=== PATIENT | female | born 1990 | race American Indian/Alaskan Native ===

== ENCOUNTER 2017-10-22 03:20 | Emergency (ER) | payer OTHER ==
[2017-10-22] MEDS ORDERED: Sodium Chloride 0.9% 1,000 ML ONE (03:39)
[2017-10-22] MEDS ORDERED: Sodium Chloride 0.9% 1,000 ML IV ONE (03:47)
[2017-10-22 03:49] VITALS: O2SAT 100
[2017-10-22 03:57] LABS: BASO % 0.4 % (0.0-2.0); EOS # 0.1 K/uL (0.0-0.7); EOS % 0.5 % (0.0-4.0); HEMATOCRIT 35.7 % (34.0-47.0); LYMPH # 1.1 K/uL (1.0-4.3); MEAN CELL VOLUME 95.6 fL (81.0-99.0); MEAN CORPUSCULAR HEMOGLOBIN 33.3 pg (27.0-31.0); MEAN CORPUSCULAR HGB CONC 34.9 g/dL (33.0-37.0); MEAN PLATELET VOLUME 9.9 fL (7.2-11.7); MONO # 0.9 K/uL (0.0-0.8); MONO % 8.5 % (0.0-10.0); NRBC % 0.1 % (0.0-2.0); RED CELL DISTRIBUTION WIDTH 12.8 % (11.5-14.5); WHITE BLOOD COUNT 10.4 K/uL (4.8-10.8)
[2017-10-22 04:02] LABS: RBC URINE 1 /hpf (0-3); URINE BACTERIA RARE (<OCC); URINE BILIRUBIN NEGATIVE (NEGATIVE); URINE BLOOD NEGATIVE (NEGATIVE); URINE COLOR Yellow (YELLOW); URINE GLUCOSE (UA) NORMAL (Normal); URINE KETONE NEGATIVE (NEGATIVE); URINE LEUKOCYTE ESTERASE TRACE Leu/uL (Negative); URINE PROTEIN NEGATIVE (NEGATIVE); URINE UROBILINOGEN NORMAL mg/dL (0.2-1.0); WBC URINE 3 /hpf (0-5)
[2017-10-22 04:06] LABS: ALKALINE PHOSPHATASE 74 U/L (38-126); ALT/SGPT 22 U/L (9-52); AST/SGOT 22 U/L (14-36); BILIRUBIN,TOTAL 0.4 mg/dL (0.2-1.3); BLOOD UREA NITROGEN 10 mg/dL (7-17); CALCIUM 8.9 mg/dl (8.6-10.4); CARBON DIOXIDE 25 mmol/L (22-30); CHLORIDE 101 mmol/L (98-107); GFR AFRICAN-AMERICAN > 60; GLUCOSE,RANDOM 99 mg/dL (65-105); POTASSIUM 3.3 mmol/L (3.6-5.2); SODIUM 132 mmol/L (132-148); TOTAL PROTEIN 7.5 g/dL (6.3-8.3)
--- NOTE | 2017-10-22 04:17 | C.PDOC ---
History Of Present Illness 27 year old female presents to the ER with a complaint of intermittent dizziness that has been worsening over the past week. Patient was seen by her OB yesterday who sent her to another ER for evaluation of dizziness, she had a an US done that was normal and was discharged home. Denies syncope, chest pain, palpitations, no recent prolonged travel, URI symptoms, abdominal pain, or vaginal bleeding. Time Seen by Provider: 10/22/17 03:42 Chief Complaint (Nursing): Dizziness/Lightheaded History Per: Patient History/Exam Limitations: no limitations Onset/Duration Of Symptoms: Days Current Symptoms Are (Timing): Still Present Associated Symptoms Preceding Syncopal Episode: Other (Dizziness) Seizure Or Post-ictal Symptoms: None Fall Associated With With Symptoms: No Recent travel outside of the [place]: No - Symptoms Of CVA Associated Symptoms: denies: Impaired Speech, Seizure Activity, New Vision Deficit(Left), New Vision Deficit(Right), Decreased Ability To Walk, New Confusion Past Medical History Reviewed: Historical Data, Nursing Documentation, Vital Signs Vital Signs: Last Vital Signs Temp 97.6 F 10/22/17 03:31 Pulse 103 H 10/22/17 03:31 Resp 16 10/22/17 03:31 BP 121/75 10/22/17 03:31 Pulse Ox 100 10/22/17 05:24 - Medical History PMH: No Chronic Diseases Family History: States: Unknown Family Hx - Social History Hx Alcohol Use: No Hx Substance Use: No - Immunization History Hx Tetanus Toxoid Vaccination: No Hx Influenza Vaccination: Yes Hx Pneumococcal Vaccination: No Review Of Systems Constitutional: Negative for: Fever, Chills Cardiovascular: Negative for: Chest Pain, Palpitations Respiratory: Negative for: Cough, Sputum, Wheezing Gastrointestinal: Negative for: Abdominal Pain Neurological: Positive for: Dizziness. Negative for: Other (Syncope) Physical Exam - Physical Exam Appears: Non-toxic, No Acute Distress Skin: Normal Color, Warm, Dry Head: Atraumatic, Normacephalic Eye(s): bilateral: Normal Inspection Oral Mucosa: Moist Chest: Symmetrical, No Tenderness Cardiovascular: Rhythm Regular (Slightly tachycardic) Respiratory: Normal Breath Sounds, No Rales, No Rhonchi, No Wheezing Gastrointestinal/Abdominal: Soft, No Tenderness, Other (Gravid) Neurological/Psych: Oriented x3, Normal Speech ED Course And Treatment - Laboratory Results Result Diagrams: 10/22/17 03:53 10/22/17 03:53 O2 Sat by Pulse Oximetry: 100 (Room air) Pulse Ox Interpretation: Normal Progress Note: EKG, blood work, and urinalysis ordered. IV fluids administered. On reevaluation, patient is resting comfortably in no distress and reports improvement of dizziness. 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 Pt states she feels very tired at time. Pt advised to rest, keep hydrated and f/u with private OB. Will be discharged to L& D for NST. Disposition - Disposition Disposition: HOME/ ROUTINE Disposition Time: 05:24 (D/C to L&D ) Condition: STABLE Forms: [facility] (Turkmen), General Discharge Instructions - Clinical Impression Clinical Impression: Dizziness, Tiredness, - PA / BOOKS SALESPERSON / Resident Statement MD/DO has reviewed & agrees with the documentation as recorded. - Scribe Statement The provider has reviewed the documentation as recorded by the Scriberi [place] All medical record entries made by the Dwaineiberi were at my direction and personally dictated by me. I have reviewed the chart and agree that the record accurately reflects my personal performance of the history, physical exam, medical decision making, and the department course for this patient. I have also personally directed, reviewed, and agree with the discharge instructions and disposition.
[2017-10-22] MEDS ORDERED: Potassium Chloride 10 mEq ER Tab PO STA (05:24)
[2017-10-22] MEDS ORDERED: Potassium Chloride 20 mEq ER Tab PO ONE (05:27)
[2017-10-22 05:33] VITALS: RESP 22
--- NOTE | 2017-10-22 06:26 | OBHP ---
Datetime: 10/22/2017 06:23 IP Adm Impression: , intrauterine IP Chief Complaint Other: nst IP Admit Plan: Discharge home Admit Comment, IP Provider: at 31+weeks send from er for nst. pt was seen for dizziness and giv en iv fluids, no ctxs, vb, lof,+fm. pt is workimng today. obhx 2 x pmh de med pnv,progestrone all nkda psh den soch cerclage nst 130 mod a/p at 31+weks for nst dc home ptl given po hy cont progest no sex f/u pmd in 2 days Pelvic Type - PN: Adequate Extremities - PN: Normal Abdomen - PN: Normal Back - PN: Normal Breast - PN: Normal Lungs - PN: Normal Heart - PN: Normal Thyroid - PN: Normal Neurologic - PN: Normal HEENT - PN: Normal General - PN: Normal FHR - Baseline A Provider: 130 Contraction Comments Provider: none Vital Signs Provider: Reviewed; Within Normal Limits NICHD Variability Prov Fetus A: Moderate 6-25bpm NICHD Accel Fetus A IP Provider: [id number] FHR Category Provider Fetus A: Category I Genitourinary Exam: Normal DTRs - PN: Normal
--- NOTE | 2017-10-22 06:28 | OBDCSUM ---
Datetime: 10/22/2017 06:25 Discharged to, Provider: Home Follow up at, Provider: thursday Disch Instr Activity: Normal activity Disch Instr Diet: Regular Discharge Time: 10/22/2017 06:27 Follow up in weeks, Provider: pmd Disch Referrals: None Disch Activity Restrictions: No sexual activity; Nothing in vagina - [place], tampons, douche Discharge Comment, Provider: ptl given po hy cont progest no sex f/u pmd in 2 days bed rest x 2 days Discharge Diagnosis Prov Other: 31 week nst
[2017-10-22] MEDS ORDERED: Potassium Chloride 10 mEq ER Tab PO SCH (08:00)
[2017-10-22 10:44] VITALS: BP 105/46; PULSE 83; TEMP 97.6
== END 2017-10-22 06:35 | disposition home or self-care (01) ==
LOC: C.EROB 03:20 → C.ER 03:20 → EDBD 03:20 → C.EROB 06:35
DX: O26.893 Other specified pregnancy related conditions, third trimester (principal); O26.813 Pregnancy related exhaustion and fatigue, third trimester; Z3A.31 31 weeks gestation of pregnancy; R42 Dizziness and giddiness
CPT/HCPCS: 80053; 81001; 82948; 85025; 96360; 99285; J7040